=== PATIENT | male | born 1985 | race Caucasian/White ===

== ENCOUNTER 2017-10-24 16:26 | Observation (INO) ==
[2017-10-24] MEDS ORDERED: Morphine Inj 4 MG/ML Vial IV.PUSH ONE (22:56)
[2017-10-24] MEDS ORDERED: Vancomycin Inj 1 GM/200 ML PIGGYBACK IV.SIG ONE (22:56)
[2017-10-24] MEDS ORDERED: Sod Chloride 0.9% Inj 1,000 ML IV.SIG ONE (22:56)
[2017-10-24] MEDS ORDERED: Piperacil/Tazo 3.375 GM Premix 50 ML IV.SIG ONE (22:56)
--- NOTE | 2017-10-24 23:01 | ED ---
HPI General Chief complaint: Skin/Abscess/Foreign Body Stated complaint: Skin Complaint Time Seen by Provider: 10/24/17 22:54 History of Present Illness HPI narrative: This patient is a Vietnamese speaker but he declines official parts interpreter and would prefer that his friend translate for him. 32-year-old male presents for evaluation of right upper extremity pain, soft tissue swelling , redness. Symptom onset 3 days ago. 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 He believes it may be a spider or another type of insect bit him on the right arm when he was in an attic 3 days ago. Since then he has had increased pain and swelling. Pain is moderate, throbbing, aggravated by palpation with no alleviating factors. Yesterday he had nausea and subjective fevers but he did not check his temperature. He denies any history of IV drug use. He denies any chest pain, shortness of breath, abdominal pain. He has no other complaints at this time. Related Data Home Medications Medication Instructions Recorded Confirmed No Known Home Medications 10/24/17 10/24/17 Allergies Allergy/AdvReac Type Severity Reaction Status Date / Time No Known Allergies Allergy Unverified 10/24/17 22:54 Review of Systems ROS Unobtainable All other systems reviewed negative except as stated in HPI PMFSH Medical History Medical History Patient denies medical problems (Acute) Surgical History Surgical History No history of previous surgery (Acute) Social History Social History Substance History: No History of Abuse Second Hand Smoke Exposure: No Smoking Status: Current every day smoker Tobacco Type: Cigarettes How Often Do You Have a Drink Containing Alcohol: Monthly or less Recent Travel in [facility] within the Last 8 Weeks: No Recent Out of Country Travel within the Last 8 Weeks: No Immunization History Tetanus Immunization: Unsure Hx Influenza Vaccine This Season: No Exam Narrative Exam Narrative: GENERAL: Well-developed well-nourished male in no acute distress SKIN: Warm and dry. There is a large area of induration and erythema to the right forearm and distal right proximal arm. There is a area that is excoriated with some scab formation on the proximal right forearm. There is no fluctuance. No obvious effusion of the right elbow or wrist. No axillary lymphadenopathy is palpable. HEAD: Atraumatic. Normocephalic. EYES: Pupils equal and round. No scleral icterus. No injection or drainage. ENT: No nasal bleeding or discharge. Mucous membranes pink and moist. NECK: Trachea midline. No JVD. CARDIOVASCULAR: Regular rate and rhythm. No murmur appreciated. RESPIRATORY: No accessory muscle use. Clear to auscultation. Breath sounds equal bilaterally. GASTROINTESTINAL: Abdomen soft, non-tender, nondistended. Hepatic and splenic margins not palpable. MUSCULOSKELETAL: No obvious deformities. No clubbing. No cyanosis. No edema. NEUROLOGICAL: Awake and alert. No obvious cranial nerve deficits. Motor grossly within normal limits. Normal speech. Course Initial Documented Vital Signs Temperature 98.1 F 10/24/17 16:30 Pulse Rate 88 10/24/17 16:30 Respiratory Rate 17 10/24/17 16:30 Blood Pressure 124/64 10/24/17 16:30 Pulse Oximetry 100 10/24/17 16:30 Last Documented Vital Signs Temperature 98.3 F 10/24/17 23:01 Pulse Rate 96 H 10/24/17 23:01 Respiratory Rate 18 10/24/17 23:01 Blood Pressure 124/62 10/24/17 23:01 Pulse Oximetry 98 10/24/17 23:[address] [facility] Narrative Medical decision making narrative: This is a 32-year-old male who presents with pain, redness and soft tissue swelling to the right upper extremity which started 3 days ago. On examination he has very large area of cellulitis to the right forearm which is concerning given his symptoms started 2-3 days ago. Lab work, blood cultures, wound culture, soft tissue ultrasound right upper extremity has been ordered. The patient be given broad-spectrum antibiotics and ultimately he will require admission for IV antibiotic therapy. Lab work has been reviewed. WBC count is 18.4. Ultrasound soft tissue arm reveals diffuse cellulitis with an early developing abscess. Differential Diagnosis Differential Diagnosis: Cellulitis, abscess, sepsis, necrotizing fasciitis, osteomyelitis, septic arthritis Lab Data Result diagrams: 10/24/17 23:12 10/24/17 23:12 Lab Results 10/24/17 10/24/17 10/24/17 Range/Units 23:12 23:12 23:12 WBC 18.4 H (4.0-11.0) th/mm3 RBC 5.12 (4.50-5.90) mil/mm3 Hgb 15.1 (13.0-17.0) gm/dL Hct 45.2 (39.0-51.0) % MCV 88.3 (80.0-100.0) fL MCH 29.5 (27.0-34.0) pg MCHC 33.4 (32.0-36.0) % RDW 13.1 (11.6-17.2) % Plt Count 254 (150-450) th/mm3 MPV 8.8 (7.0-11.0) fL Neut % (Auto) 87.4 H (16.0-70.0) % Lymph % (Auto) 6.3 L (9.0-44.0) % [place] % (Auto) 5.0 (0.0-8.0) % Eos % (Auto) 0.9 (0.0-4.0) % Baso % (Auto) 0.4 (0.0-2.0) % Neut # (Auto) 16.1 H (1.8-7.7) th/mm3 Lymph # (Auto) 1.2 (1.0-4.8) th/mm3 [place] # (Auto) 0.9 (0.0-0.9) th/mm3 Eos # (Auto) 0.2 (0.0-0.4) th/mm3 Baso # (Auto) 0.1 (0.0-0.2) th/mm3 WBC Differential . Differential Comment Auto diff final PT 10.7 (9.8-11.6) sec INR 1.1 Ratio APTT 27.9 (24.3-30.1) sec Sodium 141 (136-145) meq/L Potassium 4.1 (3.5-5.1) meq/L Chloride 103 (98-107) meq/L Carbon Dioxide 32.0 (21.0-32.0) meq/L Anion Gap 6 (5-15) meq/L BUN 19 H (7-18) mg/dL Creatinine 1.17 (0.60-1.30) mg/dL Estimated GFR 71 L (>89) mL/min Random Glucose 112 H (74-106) mg/dL Lactic Acid (0.4-2.0) mmol/L Calcium 8.9 (8.5-10.1) mg/dL 10/24/17 Range/Units 23:55 WBC (4.0-11.0) th/mm3 RBC (4.50-5.90) mil/mm3 Hgb (13.0-17.0) gm/dL Hct (39.0-51.0) % MCV (80.0-100.0) fL MCH (27.0-34.0) pg MCHC (32.0-36.0) % RDW (11.6-17.2) % Plt Count (150-450) th/mm3 MPV (7.0-11.0) fL Neut % (Auto) (16.0-70.0) % Lymph % (Auto) (9.0-44.0) % [place] % (Auto) (0.0-8.0) % Eos % (Auto) (0.0-4.0) % Baso % (Auto) (0.0-2.0) % Neut # (Auto) (1.8-7.7) th/mm3 Lymph # (Auto) (1.0-4.8) th/mm3 [place] # (Auto) (0.0-0.9) th/mm3 Eos # (Auto) (0.0-0.4) th/mm3 Baso # (Auto) (0.0-0.2) th/mm3 WBC Differential Differential Comment PT (9.8-11.6) sec INR Ratio APTT (24.3-30.1) sec Sodium (136-145) meq/L Potassium (3.5-5.1) meq/L Chloride (98-107) meq/L Carbon Dioxide (21.0-32.0) meq/L Anion Gap (5-15) meq/L BUN (7-18) mg/dL Creatinine (0.60-1.30) mg/dL Estimated GFR (>89) mL/min Random Glucose (74-106) mg/dL Lactic Acid 1.1 (0.4-2.0) mmol/L Calcium (8.5-10.1) mg/dL Imaging Data Radiologist's impression: ITS Impressions Upper Extremity Ultrasound 10/25/17 00:00 CONCLUSION: 1. Diffuse cellulitis with a complex subcutaneous collection measuring 2.6 x 2.0 x 0.8 cm consistent with developing abscess. Discharge Plan Discharge Disposition Patient Disposition: 30 Still Patient Discharge Condition Condition: Stable Discharge Details Discharge Problem: Cellulitis of arm, right, Leukocytosis, Abscess of arm, right, Sepsis Physicians Team ED Provider: Pernell Guzman ED Midlevel Provider: Tho Mayorga Primary Care Provider: Primary Care Mary Plummer Rxs /Orders / Referrals /Forms Prescriptions: No Action No Known Home Medications RF: 0 Discharge Interventions Interventions: Vital Signs Last Done: 10/24/17 23:01 Status ED Status: With Doctor
[2017-10-24 23:28] LABS: Baso # (Auto) 0.1 th/mm3 (0.0-0.2); Baso % (Auto) 0.4 % (0.0-2.0); Eos # (Auto) 0.2 th/mm3 (0.0-0.4); Eos % (Auto) 0.9 % (0.0-4.0); Hematocrit 45.2 % (39.0-51.0); Hemoglobin 15.1 gm/dL (13.0-17.0); Lymph # (Auto) 1.2 th/mm3 (1.0-4.8); Lymph % (Auto) 6.3 % (9.0-44.0); Mean Corpuscular HGB Conc 33.4 % (32.0-36.0); Mean Corpuscular Hemoglobin 29.5 pg (27.0-34.0); Mean Corpuscular Volume 88.3 fL (80.0-100.0); Mean Platelet Volume 8.8 fL (7.0-11.0); Mono # (Auto) 0.9 th/mm3 (0.0-0.9); Neut # (Auto) 16.1 th/mm3 (1.8-7.7); Neut % (Auto) 87.4 % (16.0-70.0); Platelet Count 254 th/mm3 (150-450); Red Blood Count 5.12 mil/mm3 (4.50-5.90); Red Cell Distribution Width 13.1 % (11.6-17.2); White Blood Count 18.4 th/mm3 (4.0-11.0)
[2017-10-24 23:40] LABS: Activated Partial Thrombo Time 27.9 sec (24.3-30.1); INR 1.1 Ratio; Prothrombin Time 10.7 sec (9.8-11.6)
[2017-10-24 23:55] LABS: Calcium 8.9 mg/dL (8.5-10.1); Potassium 4.1 meq/L (3.5-5.1)
--- NOTE | 2017-10-25 00:30 | US ---
EXAM DATE: 10/25/2017 12:22 AM EDT AGE/SEX: 32 years / Male INDICATIONS: Abscess. CLINICAL DATA: This is the patient's initial encounter. Patient reports that signs and symptoms have been present for 2 days and indicates a pain score of 8/10. MEDICAL/SURGICAL HISTORY: . Cellulitis. None. COMPARISON: No prior exams available for comparison. FINDINGS: Diffuse soft tissue edema with a complex heterogeneously hypoechoic region measuring 2.6 x 2.0 x 0.8 cm. CONCLUSION: 1. Diffuse cellulitis with a complex subcutaneous collection measuring 2.6 x 2.0 x 0.8 cm consistent with developing abscess. Electronically signed by: Daryl Ness MD 10/25/2017 12:29 AM EDT
[2017-10-25] MEDS ORDERED: Morphine Inj 4 MG/ML Vial IV.PUSH PRN (01:52)
[2017-10-25] MEDS ORDERED: Bisacodyl 10 MG Supp RECTAL PRN (01:53)
[2017-10-25] MEDS ORDERED: Temazepam 15 MG Capsule PO PRN (01:53)
[2017-10-25] MEDS ORDERED: Acetaminophen 325 MG Tablet PO PRN (01:53)
[2017-10-25] MEDS ORDERED: Vancomycin Consult Pharmacy 1 EACH OTHER SCH (02:00)
[2017-10-25] MEDS: Sod Chloride 0.9% Inj 1,000 ML IV.CONT SCH ×2 (02:49→20:09)
--- NOTE | 2017-10-25 04:04 | P.HP ---
History of Present Illness Service: [facility] Primary Care Physician: No Primary Care Physician Chief Complaint: RUE cellulitits History of Present Illness: 32-year-old male with no past medical history presents the emergency department for evaluation of a red, painful, swollen right arm that is draining purulent material. 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 He states that the area became erythematous and painful and his symptoms have continued to worsen. Yesterday the area near his elbow opened up and started draining pus. The patient endorses a fever yesterday. He denies any chest pain or shortness of breath. No abdominal pain. No nausea/vomiting/diarrhea. No fatigue/weakness. Inpatient Certification: I certify that the inpatient services were ordered in accordance with Medicare regulations governing the order. This includes certification that hospital inpatient services are reasonable and necessary and in the case of services not specified as inpatient-only under 42 CFR 419.22(n), that they are appropriately provided as inpatient services in accordance to with the 2-midnight benchmark under 43 CFR 412.3(e) Review of Systems All other systems reviewed negative except as stated in [facility]PI [facility] - History History Provided By: Patient - Medical History Medical History: Medical History (Last Updated 10/24/17 @ 22:51 by Hector Sutton) Patient denies medical problems - Surgical History Surgical History: Surgical History (Last Updated 10/24/17 @ 22:51 by Hector Sutton) No history of previous surgery - Family History Family History: Family History (Last Updated 10/25/17 @ 04:00 by Barbara Rodgers MD) Other No family history of cardiac disease - Tobacco History Second Hand Smoke Exposure: No Tobacco Use In Past 30 Days: Yes Smoking Status: Current every day smoker Tobacco Type: Cigarettes - Alcohol History How Often Do You Have a Drink Containing Alcohol: Monthly or less - Substance Use History Substance History: No History of Abuse - Travel History Recent Travel in the [place] Within the Last 8 Weeks: No Recent Travel Out of the Country Within the Last 8 Weeks: No - Immunization History Tetanus Immunization: Unsure Hx Influenza Vaccine This Season: No Medications and Allergies Active Medications: Active Medications Acetaminophen (Tylenol) 650 mg PO Q4H PRN PRN Reason: Temp > 100.4 Al Hydroxide/Mg Hydroxide (Milk Of Magnesia Liq) 30 ml PO Q12H PRN PRN Reason: Mild Constipation Bisacodyl (Dulcolax Supp) 10 mg RECTAL DAILY PRN PRN Reason: SEVERE CONSITIPATION Sodium Chloride (Ns Inj) 1,000 mls @ 100 mls/hr IV.CONT .Q10H FAUSTO Last Admin: 10/25/17 02:49 Dose: 100 mls/hr Pharmacy Profile Note (Vancomycin Consult Pharmacy) 0 mls @ 0 mls/hr OTHER UNSCH FAUSTO Vancomycin HCl 1,000 mg/ (Sodium Chloride) 250 mls @ 250 mls/hr IV.SIG Q12H FAUSTO Piperacillin/Tazobactam/Dextrose (Zosyn 3.375 Gm Premix) 50 mls @ 100 mls/hr IV.SIG Q6H FAUSTO Lactulose (Lactulose Liq) 30 ml PO DAILY PRN PRN Reason: SEVERE CONSITIPATION Morphine Sulfate (Morphine Inj) 4 mg IV.PUSH Q4H PRN PRN Reason: pain 6-10 Last Admin: 10/25/17 02:58 Dose: 4 mg Ondansetron HCl (Zofran Inj) 4 mg IV.PUSH Q6H PRN PRN Reason: NAUSEA OR VOMITING Senna/Docusate Sodium (Maria D-Colace) 1 tab PO BID [facility] Sennosides (Senokot) 17.2 mg PO Q12H PRN PRN Reason: Moderate Constipation Sodium Chloride (Ns Flush) 2 ml IV.FLUSH PRN PRN PRN Reason: FLUSH AFTER USING IV ACCESS Temazepam (Restoril) 15 mg PO HS PRN PRN Reason: INSOMNIA Allergies Allergy/AdvReac Type Severity Reaction Status Date / Time No Known Allergies Allergy Unverified 10/24/17 22:54 Home Medications Medication Instructions Recorded Confirmed Type No Known Home Medications 10/24/17 10/24/17 History Exam Vital signs: Vital Signs 10/24/17 16:30 10/24/17 23:01 10/25/17 03:00 Temperature 98.1 F 98.3 F Pulse Rate 88 96 H 74 Respiratory Rate 17 18 18 Blood Pressure 124/64 124/62 113/68 Pulse Oximetry 100 98 98 Intake & Output 10/24/17 10/24/17 10/25/17 06:59 18:59 06:59 Intake Total 1050 / 1050 Balance 1050 / 1050 Weight 68.039 kg Intake: IV 1050 / 1050 Zosyn 3.375 GM Premix 50 ML @ 50 / 50 100 mls/hr IV.SIG ONCE ONE Rx#: [id number] NS Inj 1,000 ML @ Wide Open IV. 1000 / 1000 SIG BOLUS ONE Rx#:[id number] Narrative: Gen.: No acute distress Head: Normocephalic. Atraumatic. EENT: Pupils equal round and reactive to light. Nose without drainage. Airway intact. Throat without injection. Cardiovascular: Regular rate and rhythm. No murmurs, rubs or gallops. Respiratory: Lungs clear to auscultation bilaterally. No wheezes or rhonchi. Abdomen: Soft, nontender, nondistended. No peritoneal signs. Musculoskeletal: No gross deformities. No edema. Skin: Right forearm with erythema and edema. 3 cm open area draining purulent material. Neuro: Sensory and motor grossly intact. Cranial nerves II through XII grossly intact. Psych: Appropriate mood and affect Results - Labs CBC & Chem 7: 10/24/17 23:12 10/24/17 23:12 Labs: Laboratory Results - last 24 hr 10/24/17 10/24/17 10/24/17 23:12 23:12 23:12 WBC 18.4 H RBC 5.12 Hgb 15.1 Hct 45.2 MCV 88.3 MCH 29.5 MCHC 33.4 RDW 13.1 Plt Count 254 MPV 8.8 Neut % (Auto) 87.4 H Lymph % (Auto) 6.3 L [place] % (Auto) 5.0 Eos % (Auto) 0.9 Baso % (Auto) 0.4 Neut # (Auto) 16.1 H Lymph # (Auto) 1.2 [place] # (Auto) 0.9 Eos # (Auto) 0.2 Baso # (Auto) 0.1 WBC Differential . Differential Comment Auto diff final PT 10.7 INR 1.1 APTT 27.9 Sodium 141 Potassium 4.1 Chloride 103 Carbon Dioxide 32.0 Anion Gap 6 BUN 19 H Creatinine 1.17 Estimated GFR 71 L Random Glucose 112 H Lactic Acid Calcium 8.9 10/24/17 23:55 WBC RBC Hgb Hct MCV MCH MCHC RDW Plt Count MPV Neut % (Auto) Lymph % (Auto) [place] % (Auto) Eos % (Auto) Baso % (Auto) Neut # (Auto) Lymph # (Auto) [place] # (Auto) Eos # (Auto) Baso # (Auto) WBC Differential Differential Comment PT INR APTT Sodium Potassium Chloride Carbon Dioxide Anion Gap BUN Creatinine Estimated GFR Random Glucose Lactic Acid 1.1 Calcium - Imaging Impressions Upper Extremity Ultrasound 10/25/17 00:00 CONCLUSION: 1. Diffuse cellulitis with a complex subcutaneous collection measuring 2.6 x 2.0 x 0.8 cm consistent with developing abscess. Caprini VTE Risk Assessment Caprini VTE Risk Assessment: No/Low Risk (score <= 1) Caprini Risk Assessment Model: Point Value = 1 Point Value = 2 Point Value = 3 Point Value = 5 Age 41-60 Minor surgery BMI > 25 kg/m2 Swollen legs Varicose veins or History of unexplained or recurrent spontaneous Oral contraceptives or hormone replacement Sepsis (< 1 month) Serious lung disease, including pneumonia (< 1 month) Abnormal pulmonary function Acute myocardial infarction Congestive heart failure (< 1 month) History of inflammatory bowel disease Medical patient at bed rest Age 61-74 Arthroscopic surgery Major open surgery (> 45 min) Laparoscopic surgery (> 45 min) Malignancy Confined to bed (> 72 hours) Immobilizing plaster cast Central venous access Age >= 75 History of VTE Family history of VTE Factor V Leiden Prothrombin [id number] Lupus anticoagulant Anticardiolipin antibodies Elevated serum homocysteine Heparin-induced thrombocytopenia Other congenital or acquired thrombophilia Stroke (< 1 month) Elective arthroplasty Hip, pelvis, or leg fracture Acute spinal cord injury (< 1 month) Prophylaxis Regimen: Total Risk Factor Score Risk Level Prophylaxis Regimen 0-1 Low Early ambulation 2 Moderate Order ONE of the following: *Sequential Compression Device (SCD) *Heparin 5000 units SQ BID 3-4 Higher Order ONE of the following medications: *Heparin 5000 units SQ TID *Enoxaparin/Lovenox 40 mg SQ daily (WT < 150 kg, CrCl > 30 mL/min) *Enoxaparin/Lovenox 30 mg SQ daily (WT < 150 kg, CrCl > 10-29 mL/min) *Enoxaparin/Lovenox 30 mg SQ BID (WT < 150 kg, CrCl > 30 mL/min) AND/OR *Sequential Compression Device (SCD) 5 or more Highest Order ONE of the following medications: *Heparin 5000 units SQ TID (Preferred with Epidurals) *Enoxaparin/Lovenox 40 mg SQ daily (WT < 150 kg, CrCl > 30 mL/min) *Enoxaparin/Lovenox 30 mg SQ daily (WT < 150 kg, CrCl > 10-29 mL/min) *Enoxaparin/Lovenox 30 mg SQ BID (WT < 150 kg, CrCl > 30 mL/min) AND *Sequential Compression Device (SCD) Assessment and Plan - Plan Assessment/plan: 1. Right upper extremity cellulitis/abscess Ultrasound of the right upper extremity shows diffuse cellulitis with a complex subcutaneous collection consistent with a developing abscess Vancomycin/Zosyn Blood/wound cultures pending General surgery consulted to evaluate for possible I&D Morphine for pain FEN N.p.o. Electrolytes: Monitor and replete as needed NS at 100 cc/hour
[2017-10-25] MEDS: Piperacil/Tazo 3.375 GM Premix 50 ML IV.SIG SCH ×3 (06:18→18:55)
[2017-10-25] MEDS: Senna/Docusate Sodium 8.6/50 MG Tablet PO SCH ×2 (10:16→21:52)
[2017-10-25] MEDS: Vancomycin Inj 1,000 MG in Sodium Chlor 0.9% Inj 250 ML IV.SIG SCH (13:47)
[2017-10-25] MEDS ORDERED: Lidocaine PF 1% Inj 5 ML Syringe INFILTRATN ONE (14:58)
[2017-10-25] MEDS ORDERED: Chlorhexidine Gluconate 2% 1 Pack (2 Cloths) TOPICAL SCH (22:15)
[2017-10-25] MEDS ORDERED: Metoprolol Tartrate 25 MG Tablet PO SCH (22:15)
[2017-10-25] MEDS ORDERED: Sodium Chlor 0.9% Inj 500 ML IV.SIG SCH (23:00)
[2017-10-25] MEDS ORDERED: ceFAZolin 2 GM Premix Inj 2 GM/50 ML PIGGYBACK IV.SIG ONE ×2 (23:12→23:15)
--- NOTE | 2017-10-25 23:18 | MB ---
cc: Eleazar Hernandez MD, Srikanth MD DATE: 10/25/2017 REASON FOR CONSULTATION: Right forearm abscess. HISTORY OF PRESENT ILLNESS: The patient is a 32-year-old right-hand dominant male who presented with complaints of pain, swelling and redness involving the right elbow/forearm region. The patient states he was bitten by a questionable spider in the attic about 3 to 4 days ago and he noticed drainage from the region. He complains of pain, swelling, redness over the right forearm and elbow region. He also complains of drainage from the region. He does complain of fever. Denies any similar history in the past. He denies any complaints of numbness involving the fingertips. PAST MEDICAL AND SURGICAL HISTORY: Noted and nonsignificant. PHYSICAL EXAMINATION: Examination of right upper extremity reveals a draining open wound over the posterior aspect of the elbow and forearm region just distal to the olecranon process. There is evidence of surrounding swelling and erythema. Tenderness noted over the region. Increased warmth noted over the region. Mild drainage of purulent material noted over the region. No tenderness noted over the ulnar nerve. He is able to make a full fist. He has flexion in all of the fingers. He has intact intrinsic muscle power. He has intact distal capillary refill. Clinically, there is no evidence of olecranon bursitis. Elbow flexion and extension is almost full. LABORATORY DATA: Reviewed. He has a white count of 18.4 and shift of 87 pounds and 87.4. IMAGING STUDIES: He had ultrasound of the right upper extremity, which showed evidence of complex fluid collection measuring about 2.6 x 2 x 0.8 cm consistent with developing abscess. ASSESSMENT: A 32-year-old male with an abscess, right elbow/posterior forearm. PLAN: Take the patient emergently for incision and drainage of right forearm abscess. The patient has been explained the risks and benefits of the procedure. We will continue with IV antibiotics. Eleazar Hernandez MD SE/ , 11:00 PM , 11:17 PM
[2017-10-25] MEDS ORDERED: Neomycin/Polymyxin G.U. Irrigant 1 ML Ampul ONE (23:22)
[2017-10-25] MEDS ORDERED: Bupivacaine PF 0.5% Inj 30 ML Vial ONE (23:24)
[2017-10-25] MEDS ORDERED: Lidocaine 2% Inj 50 ML Vial ONE (23:24)
--- NOTE | 2017-10-26 00:39 | P.OP ---
- Preoperative Diagnosis (1) Abscess of right forearm - Postoperative Diagnosis (1) Abscess of right forearm Date of procedure: 10/26/17 Procedure: incision and drainage of right elbow abscess Anesthesia: GETA Surgeon: Eleazar Hernandez MD Estimated blood loss (mL): 10 Tourniquet time (min): 17 Pathology: other (swab for culture and sensitivity) Operation and Findings: abscess cavity over the posterior proximal forearm just distal to the olecranon bursa
[2017-10-26] MEDS ORDERED: fentaNYL Citrate Inj 100 MCG/2 ML Ampul ONE (00:47)
--- NOTE | 2017-10-26 01:02 | MP ---
cc: Eleazar Hernandez MD DATE OF OPERATION: 10/25/2017 DATE OF SURGERY: 10/25/2017 PREOPERATIVE DIAGNOSIS: Abscess, right forearm. POSTOPERATIVE DIAGNOSIS: Abscess, right forearm. PROCEDURE PERFORMED: Incision and drainage, right elbow/forearm abscess. SURGEON: Dr. Hernandez. ANESTHESIA: General. ESTIMATED BLOOD LOSS: 10 mL. TOURNIQUET TIME: 17 minutes at 250 mmHg. SPECIMENS: Sent for culture and sensitivity. DISPOSITION: To PACU, stable. INDICATIONS: The patient is a 32-year-old male who presented with complaints of pain, swelling and redness over the right elbow and forearm region. He also complained of drainage from the region. On examination, he had an open, draining wound over the posterior aspect of the elbow just distal to the olecranon bursa region. He did not have any tenderness over the olecranon bursa. He had diffuse tenderness and swelling with fluctuation over the proximal aspect of the posterior forearm. Ultrasound showed complex collection consistent with abscess. The patient was consented for incision and drainage of abscess. The patient was explained the risks and benefits of the procedure. PROCEDURE IN DETAIL: The patient was brought to the operating room. Under general anesthesia, the right upper extremity was thoroughly prepped and draped. After limb elevation, tourniquet was inflated to 250 mmHg. Incision was then made over the open wound. On further exploration, there was evidence of extensive necrotic tissue within the subcutaneous region which was debrided. There was also evidence of pockets of pus within the subcutaneous region which were drained, and material was sent for culture and sensitivity. Using blunt finger dissection, pockets were broken. No evidence of any extension into the olecranon bursa was noted clinically intraoperatively. Using a rongeur, excisional debridement of devitalized tissue was carried out. Thorough wash was given using normal saline mixed with hydrogen peroxide. This was then followed by normal saline mixed with irrigant. About a liter of solution was used. Tourniquet was deflated at 17 minutes. He had good distal circulation after release of tourniquet. Packing of the wound was carried out. The wound was left open. A bulky dressing was applied which was held in place by Sof-Rol and bias wrap. The patient was recovered and sent to recovery room in stable condition. He had good distal circulation at the end of the procedure. We will change the packing tomorrow. MD RACHEL Zarate , 12:43 AM , 01:01 AM [email or web address]
[2017-10-26] MEDS: Sod Chloride 0.9% Inj 1,000 ML IV.CONT SCH ×3 (01:06→20:25)
[2017-10-26] MEDS: Piperacil/Tazo 3.375 GM Premix 50 ML IV.SIG SCH ×4 (01:07→18:18)
[2017-10-26] MEDS: Vancomycin Inj 1,000 MG in Sodium Chlor 0.9% Inj 250 ML IV.SIG SCH ×3 (01:57→20:25)
[2017-10-26 08:29] LABS: Baso % (Auto) 0.1 % (0.0-2.0); Hematocrit 39.2 % (39.0-51.0); Hemoglobin 13.2 gm/dL (13.0-17.0); Lymph # (Auto) 0.6 th/mm3 (1.0-4.8); Lymph % (Auto) 3.9 % (9.0-44.0); Mean Corpuscular HGB Conc 33.8 % (32.0-36.0); Mean Corpuscular Hemoglobin 29.5 pg (27.0-34.0); Mean Corpuscular Volume 87.5 fL (80.0-100.0); Mono # (Auto) 0.2 th/mm3 (0.0-0.9); Mono % (Auto) 1.3 % (0.0-8.0); Neut # (Auto) 13.5 th/mm3 (1.8-7.7); Neut % (Auto) 94.7 % (16.0-70.0); Platelet Count 263 th/mm3 (150-450); Red Blood Count 4.48 mil/mm3 (4.50-5.90); Red Cell Distribution Width 12.7 % (11.6-17.2); White Blood Count 14.3 th/mm3 (4.0-11.0)
[2017-10-26 08:55] LABS: Anion Gap 6 meq/L (5-15); Blood Urea Nitrogen 13 mg/dL (7-18); Chloride 106 meq/L (98-107); Glomerular Filtration Rate Greater Than 89 mL/min (>89); Glucose,Random 139 mg/dL (74-106); Potassium 4.1 meq/L (3.5-5.1); Sodium 139 meq/L (136-145)
[2017-10-26] MEDS: Senna/Docusate Sodium 8.6/50 MG Tablet PO SCH ×2 (09:07→20:25)
[2017-10-26] MEDS ORDERED: Pharmacy Ordered Lab Info OTHER ONE (11:45)
[2017-10-26] MEDS ORDERED: Vancomycin Inj 1,000 MG in Sodium Chlor 0.9% Inj 250 ML IV.SIG SCH (16:00)
--- NOTE | 2017-10-26 18:18 | P.PN ---
Subjective Interval history: denies any pain feels better no fever denies any numbness Physical Exam Vital signs: Vital Signs 10/25/17 20:00 10/25/17 22:15 10/26/17 00:41 Temperature 99.8 F H 99.6 F 99.1 F Pulse Rate 82 93 H 83 Respiratory Rate 18 20 14 Blood Pressure 108/62 121/68 103/60 Pulse Oximetry 98 98 94 L 10/26/17 00:45 10/26/17 01:00 10/26/17 01:14 Temperature Pulse Rate 82 96 H Respiratory Rate 14 28 H Blood Pressure 100/58 L 118/59 L Pulse Oximetry 93 L 93 L 96 10/26/17 01:15 10/26/17 01:30 10/26/17 03:39 Temperature 99.5 F 98.0 F Pulse Rate 96 H 85 73 Respiratory Rate 27 H 22 19 Blood Pressure 124/67 116/57 L 99/56 L Pulse Oximetry 100 100 94 L 10/26/17 08:00 10/26/17 12:00 10/26/17 16:00 Temperature 97.6 F 98.2 F 98.0 F Pulse Rate 64 87 79 Respiratory Rate 18 18 18 Blood Pressure 94/52 L 110/56 L 101/61 Pulse Oximetry 97 96 96 Intake & Output 10/25/17 10/26/17 10/26/17 18:59 06:59 18:59 Intake Total 1050 / 1050 2650 / 2650 828 / 828 Output Total Balance 1050 / 1050 2640 / 2640 828 / 828 Intake: IV 1050 / 1050 1850 / 1850 828 / 828 NS Inj 1,000 ML @ 100 mls/hr IV 1000 / 1000 1000 / 1000 528 / 528 .CONT .Q10H [facility] Rx#:[id number] Zosyn 3.375 GM Premix 50 ML @ 50 / 50 100 / 100 50 / 50 100 mls/hr IV.SIG Q6H [facility] Rx#: [id number] Vancomycin Inj 1,000 MG In NS 500 / 500 250 / 250 Inj 250 ML @ 250 mls/hr IV.SIG Q12H [facility] Rx#:[id number] Ancef 2 GM Premix Inj 2 gm In 50 / 50 50 ml @ 100 mls/hr IV.SIG ONCE ONE Rx#:[id number] Anesthesia Amount 800 / 800 Output: Estimated Blood Loss Narrative: examination of right upper extremity: intact dressing and packing in place decreased swelling of the forearm and arm compartments soft and non tender minimal drainage able to make a fist intact distal sensation cultures: heavy growth of staph Results - Labs CBC & Chem 7: 10/26/17 07:19 10/26/17 07:19 Laboratory Results - last 24 hr 10/26/17 10/26/17 10/26/17 07:19 07:19 11:58 WBC 14.3 H RBC 4.48 L Hgb 13.2 Hct 39.2 MCV 87.5 MCH 29.5 MCHC 33.8 RDW 12.7 Plt Count 263 MPV 9.0 Neut % (Auto) 94.7 H Lymph % (Auto) 3.9 L [place] % (Auto) 1.3 Eos % (Auto) 0.0 Baso % (Auto) 0.1 Neut # (Auto) 13.5 H Lymph # (Auto) 0.6 L [place] # (Auto) 0.2 Eos # (Auto) 0.0 Baso # (Auto) 0.0 WBC Differential . Differential Comment Auto diff final Sodium 139 Potassium 4.1 Chloride 106 Carbon Dioxide 27.0 Anion Gap 6 BUN 13 Creatinine 0.93 Estimated GFR Greater than 89 Random Glucose 139 H Calcium 9.0 Vancomycin Trough 6.3 Microbiology 10/24/17 23:13 Blood - Peripheral Aerobic Blood Culture - Preliminary No growth in 2 days 10/24/17 23:13 Blood - Peripheral Anaerobic Blood Culture - Preliminary No growth in 2 days 10/24/17 23:23 Blood - Peripheral Aerobic Blood Culture - Preliminary No growth in 2 days 10/24/17 23:23 Blood - Peripheral Anaerobic Blood Culture - Preliminary No growth in 2 days 10/24/17 22:03 Abscess - Arm Gram Stain - Final 10/24/17 22:03 Abscess - Arm Wound Culture - Final Staphylococcus aureus 10/26/17 00:07 Wound - Elbow Gram Stain - Final Assessment and Plan - Assessment (1) Abscess of right forearm Code(s): L02.413 - Cutaneous abscess of right upper limb Status: Acute - Plan packing pulled out about 5cms. dry dressing, soft roll and marcus wrap applied keep the part elevated finger and elbow range of motion exercises continue with IV antibiotics hand surgery will follow
[2017-10-27] MEDS: Piperacil/Tazo 3.375 GM Premix 50 ML IV.SIG SCH ×2 (00:19→06:26)
[2017-10-27] MEDS: Vancomycin Inj 1,000 MG in Sodium Chlor 0.9% Inj 250 ML IV.SIG SCH ×3 (03:53→22:00)
[2017-10-27] MEDS: Senna/Docusate Sodium 8.6/50 MG Tablet PO SCH ×2 (08:45→22:00)
--- NOTE | 2017-10-27 10:34 | P.PNIM ---
Subjective Interval history: Patient reports the arm is feeling much better today. Less painful, less swelling. Range of motion is normal. Physical Exam Vital signs: Vital Signs 10/26/17 12:00 10/26/17 16:00 10/26/17 20:00 Temperature 98.2 F 98.0 F 98.4 F Pulse Rate 87 79 78 Respiratory Rate 18 18 17 Blood Pressure 110/56 L 101/61 123/66 Pulse Oximetry 96 96 98 10/26/17 23:30 10/27/17 04:54 10/27/17 07:23 Temperature 97.6 F 96.3 F L 97.4 F L Pulse Rate 73 59 L 63 Respiratory Rate 18 18 Blood Pressure 109/61 107/60 103/60 Pulse Oximetry 97 97 96 Intake & Output 10/26/17 10/27/17 10/27/17 18:59 06:59 18:59 Intake Total 878 / 878 1550 / 1550 Output Total 600 / 600 Balance 878 / 878 950 / 950 Intake: IV 878 / 878 1550 / 1550 NS Inj 1,000 ML @ 100 mls/hr IV 528 / 528 950 / 950 .CONT .Q10H [facility] Rx#:[id number] Zosyn 3.375 GM Premix 50 ML @ 100 / 100 100 / 100 100 mls/hr IV.SIG Q6H [facility] Rx#: [id number] Vancomycin Inj 1,000 MG In NS 250 / 250 500 / 500 Inj 250 ML @ 250 mls/hr IV.SIG Q8H [facility] Rx#:[id number] Output: Urine 600 / 600 Other: Date of Last Bowel Movement 10/26/17 Narrative: GENERAL: This is a well-nourished, well-developed patient, in no apparent distress. CARDIOVASCULAR: Normal rate and regular rhythm without murmurs, gallops, or rubs. RESPIRATORY: Good respiratory efforts. Breath sounds equal and clear to auscultation bilaterally. GASTROINTESTINAL: Abdomen soft, non-tender, non-distended. Normal active bowel sounds MUSCULOSKELETAL: Right upper extremity dressing is intact. Neurovascularly intact distally at the fingers. NEURO: Alert & Oriented x4 to person, place, time, situation. Moves all ext x4 PSYCH: Appropriate mood and affect. Results - Labs CBC & Chem 7: 10/26/17 07:19 10/26/17 07:19 Laboratory Results - last 24 hr 10/26/17 11:58 Vancomycin Trough 6.3 Microbiology 10/24/17 23:13 Blood - Peripheral Aerobic Blood Culture - Preliminary No growth in 2 days 10/24/17 23:13 Blood - Peripheral Anaerobic Blood Culture - Preliminary No growth in 2 days 10/24/17 23:23 Blood - Peripheral Aerobic Blood Culture - Preliminary No growth in 2 days 10/24/17 23:23 Blood - Peripheral Anaerobic Blood Culture - Preliminary No growth in 2 days 10/24/17 22:03 Abscess - Arm Gram Stain - Final 10/24/17 22:03 Abscess - Arm Wound Culture - Final Staphylococcus aureus 10/26/17 00:07 Wound - Elbow Gram Stain - Final Assessment and Plan - Assessment (1) Cellulitis of arm, right Code(s): L03.113 - Cellulitis of right upper limb Status: Acute (2) Abscess of arm, right Code(s): L02.413 - Cutaneous abscess of right upper limb Status: Acute (3) Abscess of right forearm Code(s): L02.413 - Cutaneous abscess of right upper limb Status: Acute - Plan Assessment/plan: 1. Right upper extremity cellulitis/abscess Ultrasound of the right upper extremity shows diffuse cellulitis with a complex subcutaneous collection consistent with a developing abscess Patient is status post incision and drainage. Hand surgery following. Dressing changes per hand surgery. Wound cultures growing MSSA. Change antibiotics to IV Ancef. Anticipate discharge soon when cleared by Hand surgery.
[2017-10-27] MEDS: Sod Chloride 0.9% Inj 1,000 ML IV.CONT SCH ×2 (12:53→13:24)
--- NOTE | 2017-10-27 17:00 | P.PN ---
Subjective Interval history: no pain no fever complaint with limb elevation Physical Exam Vital signs: Vital Signs 10/26/17 20:00 10/26/17 23:30 10/27/17 04:54 Temperature 98.4 F 97.6 F 96.3 F L Pulse Rate 78 73 59 L Respiratory Rate 17 18 18 Blood Pressure 123/66 109/61 107/60 Pulse Oximetry 98 97 97 10/27/17 07:23 10/27/17 12:00 10/27/17 15:44 Temperature 97.4 F L 97.7 F 98.0 F Pulse Rate 63 52 L 63 Respiratory Rate 18 18 Blood Pressure 103/60 104/65 107/63 Pulse Oximetry 96 98 96 Intake & Output 10/26/17 10/27/17 10/27/17 18:59 06:59 18:59 Intake Total 878 / 878 2550 / 2550 100 / 100 Output Total 600 / 600 Balance 878 / 878 1950 / 1950 100 / 100 Intake: IV 878 / 878 2550 / 2550 100 / 100 NS Inj 1,000 ML @ 100 mls/hr IV 528 / 528 1950 / 1950 .CONT .Q10H [facility] Rx#:[id number] Zosyn 3.375 GM Premix 50 ML @ 100 / 100 100 / 100 100 mls/hr IV.SIG Q6H [facility] Rx#: [id number] Vancomycin Inj 1,000 MG In NS 250 / 250 500 / 500 Inj 250 ML @ 250 mls/hr IV.SIG Q8H [facility] Rx#:[id number] Ancef Inj 1,000 MG In NS Inj 100 / 100 100 ML @ 200 mls/hr IV.SIG Q8H [facility] Rx#:[id number] Output: Urine 600 / 600 Other: Date of Last Bowel Movement 10/26/17 Narrative: examination of the right upper extremity: intact dressing packing in place minimal drainage decreased swelling and redness able to make a full fist intact sensation distally cultures: MSSA Results - Labs CBC & Chem 7: 10/26/17 07:19 10/26/17 07:19 Microbiology 10/26/17 00:07 Wound - Elbow Gram Stain - Final 10/26/17 00:07 Wound - Elbow Wound Culture - Preliminary Staphylococcus aureus 10/24/17 23:13 Blood - Peripheral Aerobic Blood Culture - Preliminary No growth in 3 days 10/24/17 23:13 Blood - Peripheral Anaerobic Blood Culture - Preliminary No growth in 3 days 10/24/17 23:23 Blood - Peripheral Aerobic Blood Culture - Preliminary No growth in 3 days 10/24/17 23:23 Blood - Peripheral Anaerobic Blood Culture - Preliminary No growth in 3 days Assessment and Plan - Assessment (1) Abscess of right forearm Code(s): L02.413 - Cutaneous abscess of right upper limb Status: Acute - Plan packing pulled out. dry dressing applied keep the part elevated finger and elbow range of motion exercises continue with IV antibiotics plan for discharge on 10/28 after i change the dressing on po antibiotics.
[2017-10-28] MEDS: Sod Chloride 0.9% Inj 1,000 ML IV.CONT SCH ×2 (05:33→11:09)
[2017-10-28] MEDS: Vancomycin Inj 1,000 MG in Sodium Chlor 0.9% Inj 250 ML IV.SIG SCH (05:36)
[2017-10-28 07:39] LABS: Baso % (Auto) 0.5 % (0.0-2.0); Eos # (Auto) 0.1 th/mm3 (0.0-0.4); Eos % (Auto) 2.2 % (0.0-4.0); Hematocrit 37.7 % (39.0-51.0); Hemoglobin 12.7 gm/dL (13.0-17.0); Lymph # (Auto) 2.8 th/mm3 (1.0-4.8); Lymph % (Auto) 42.3 % (9.0-44.0); Mean Corpuscular HGB Conc 33.6 % (32.0-36.0); Mean Corpuscular Hemoglobin 29.7 pg (27.0-34.0); Mean Corpuscular Volume 88.4 fL (80.0-100.0); Mean Platelet Volume 8.7 fL (7.0-11.0); Mono # (Auto) 0.6 th/mm3 (0.0-0.9); Mono % (Auto) 8.6 % (0.0-8.0); Neut # (Auto) 3.1 th/mm3 (1.8-7.7); Neut % (Auto) 46.4 % (16.0-70.0); Platelet Count 294 th/mm3 (150-450); Red Blood Count 4.26 mil/mm3 (4.50-5.90); Red Cell Distribution Width 12.9 % (11.6-17.2); White Blood Count 6.7 th/mm3 (4.0-11.0)
[2017-10-28] MEDS: Senna/Docusate Sodium 8.6/50 MG Tablet PO SCH (11:09)
--- NOTE | 2017-10-28 11:31 | P.PNIM ---
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 Patient reports that pain is controlled. Denies any chest pain or shortness of breath. Denies any nausea or vomiting. Physical Exam Vital signs: Vital Signs 10/27/17 12:00 10/27/17 15:44 10/27/17 20:00 Temperature 97.7 F 98.0 F 98.2 F Pulse Rate 52 L 63 64 Respiratory Rate 18 18 17 Blood Pressure 104/65 107/63 109/60 Pulse Oximetry 98 96 97 10/28/17 00:00 10/28/17 00:47 10/28/17 03:33 Temperature 98.1 F 98 F Pulse Rate 57 L 51 L Respiratory Rate 20 16 16 Blood Pressure 123/74 109/69 Pulse Oximetry 97 99 Intake & Output 10/27/17 10/28/17 10/28/17 18:59 06:59 18:59 Intake Total 350 / 350 1450 / 1450 Balance 350 / 350 1450 / 1450 Intake: IV 350 / 350 1450 / 1450 NS Inj 1,000 ML @ 100 mls/hr IV 1000 / 1000 .CONT .Q10H [facility] Rx#:[id number] Vancomycin Inj 1,000 MG In NS 250 / 250 250 / 250 Inj 250 ML @ 250 mls/hr IV.SIG Q8H [facility] Rx#:[id number] Ancef Inj 1,000 MG In NS Inj 100 / 100 200 / 200 100 ML @ 200 mls/hr IV.SIG Q8H [facility] Rx#:[id number] Narrative: GENERAL: Sitting up in bed. Appears comfortable. Alert and oriented x3 SKIN: Warm and dry. HEAD: Normocephalic. EYES: No scleral icterus. No injection or drainage. NECK: Supple, trachea midline. No JVD. CARDIOVASCULAR: Regular rate and rhythm without murmurs, gallops, or rubs. RESPIRATORY: Breath sounds equal bilaterally. No accessory muscle use. GASTROINTESTINAL: Abdomen soft, non-tender, nondistended. MUSCULOSKELETAL: No cyanosis, or edema. Right forearm dressed with dressing clean dry and intact. BACK: Nontender without obvious deformity. No CVA tenderness. Results - Labs CBC & Chem 7: 10/28/17 06:05 10/26/17 07:19 Laboratory Results - last 24 hr 10/28/17 06:05 WBC 6.7 RBC 4.26 L Hgb 12.7 L Hct 37.7 L MCV 88.4 MCH 29.7 MCHC 33.6 RDW 12.9 Plt Count 294 MPV 8.7 Neut % (Auto) 46.4 Lymph % (Auto) 42.3 [place] % (Auto) 8.6 H Eos % (Auto) 2.2 Baso % (Auto) 0.5 Neut # (Auto) 3.1 Lymph # (Auto) 2.8 [place] # (Auto) 0.6 Eos # (Auto) 0.1 Baso # (Auto) 0.0 WBC Differential . Differential Comment Auto diff final Microbiology 10/24/17 23:13 Blood - Peripheral Aerobic Blood Culture - Preliminary No growth in 4 days 10/24/17 23:13 Blood - Peripheral Anaerobic Blood Culture - Preliminary No growth in 4 days 10/24/17 23:23 Blood - Peripheral Aerobic Blood Culture - Preliminary No growth in 4 days 10/24/17 23:23 Blood - Peripheral Anaerobic Blood Culture - Preliminary No growth in 4 days 10/26/17 00:07 Wound - Elbow Gram Stain - Final 10/26/17 00:07 Wound - Elbow Wound Culture - Final Staphylococcus aureus Assessment and Plan - Assessment (1) Cellulitis of arm, right Code(s): L03.113 - Cellulitis of right upper limb Status: Acute (2) Abscess of arm, right Code(s): L02.413 - Cutaneous abscess of right upper limb Status: Acute (3) Abscess of right forearm Code(s): L02.413 - Cutaneous abscess of right upper limb Status: Acute - Plan //Right upper extremity cellulitis/abscess Ultrasound of the right upper extremity shows diffuse cellulitis with a complex subcutaneous collection consistent with a developing abscess Patient is status post incision and drainage. Hand surgery following. Dressing changes per hand surgery. Wound cultures growing MSSA. Change antibiotics to IV Ancef. Anticipate discharge soon when cleared by Hand surgery. = Pending and surgery clearance for Discharge Planning: Pending hand surgery clearance
--- NOTE | 2017-10-28 11:48 | P.DS ---
Date of admission: 10/25/17 01:53 Primary care physician: No Primary Care Physician Anticipated date of discharge: 10/28/17 Brief History from admission: 32-year-old male with no past medical history presents the emergency department for evaluation of a red, painful, swollen right arm that is draining purulent material. 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 He states that the area became erythematous and painful and his symptoms have continued to worsen. Yesterday the area near his elbow opened up and started draining pus. The patient endorses a fever yesterday. He denies any chest pain or shortness of breath. No abdominal pain. No nausea/vomiting/diarrhea. No fatigue/weakness. DS: Diagnosis - Discharge Diagnosis (1) Cellulitis of arm, right Status: Acute (2) Abscess of arm, right Status: Acute (3) Abscess of right forearm Status: Acute DS: Medications - Discharge Medications Prescriptions: cephalexin [Keflex] 750 mg PO TID #30 cap DS: Summary Hospital Course: Patient was started on broad-spectrum antibiotics with improvement. Patient underwent incision and drainage by hand surgery. Patient was cleared for discharge by hand surgery. Continue on by mouth antibiotics. Follow with primary care. For problem-based summary from most recent progress note, please see below. //Right upper extremity cellulitis/abscess Ultrasound of the right upper extremity shows diffuse cellulitis with a complex subcutaneous collection consistent with a developing abscess Patient is status post incision and drainage. Hand surgery following. Dressing changes per hand surgery. Wound cultures growing MSSA. Change antibiotics to IV Ancef. Anticipate discharge soon when cleared by Hand surgery. = Pending hand surgery clearance - Time Spent with Patient Total time spent providing and/or coordinating discharge services: - Quality: VTE Deep Vein Thrombosis/Pulmonary Embolism Present on Admission: No Exam Vital signs: Vital Signs 10/27/17 12:00 10/27/17 15:44 10/27/17 20:00 Temperature 97.7 F 98.0 F 98.2 F Pulse Rate 52 L 63 64 Respiratory Rate 18 18 17 Blood Pressure 104/65 107/63 109/60 Pulse Oximetry 98 96 97 10/28/17 00:00 10/28/17 00:47 10/28/17 03:33 Temperature 98.1 F 98 F Pulse Rate 57 L 51 L Respiratory Rate 20 16 16 Blood Pressure 123/74 109/69 Pulse Oximetry 97 99 Intake & Output 10/27/17 10/28/17 10/28/17 18:59 06:59 18:59 Intake Total 350 / 350 1450 / 1450 Balance 350 / 350 1450 / 1450 Intake: IV 350 / 350 1450 / 1450 NS Inj 1,000 ML @ 100 mls/hr IV 1000 / 1000 .CONT .Q10H [facility] Rx#:[id number] Vancomycin Inj 1,000 MG In NS 250 / 250 250 / 250 Inj 250 ML @ 250 mls/hr IV.SIG Q8H [facility] Rx#:[id number] Ancef Inj 1,000 MG In NS Inj 100 / 100 200 / 200 100 ML @ 200 mls/hr IV.SIG Q8H [facility] Rx#:[id number] Results Procedures completed during hospitalization: Incision and drainage Labs on day of discharge: Labs from last 24 hours 10/28/17 06:05 WBC 6.7 RBC 4.26 L Hgb 12.7 L Hct 37.7 L MCV 88.4 MCH 29.7 MCHC 33.6 RDW 12.9 Plt Count 294 MPV 8.7 Neut % (Auto) 46.4 Lymph % (Auto) 42.3 [place] % (Auto) 8.6 H Eos % (Auto) 2.2 Baso % (Auto) 0.5 Neut # (Auto) 3.1 Lymph # (Auto) 2.8 [place] # (Auto) 0.6 Eos # (Auto) 0.1 Baso # (Auto) 0.0 WBC Differential . Differential Comment Auto diff final Preliminary micro results at discharge 10/24/17 23:13 Aerobic Blood Culture - Preliminary Blood - Peripheral No growth in 4 days Anaerobic Blood Culture - Preliminary No growth in 4 days 10/24/17 23:23 Aerobic Blood Culture - Preliminary Blood - Peripheral No growth in 4 days Anaerobic Blood Culture - Preliminary No growth in 4 days - Impressions ITS Impressions Upper Extremity Ultrasound 10/25/17 00:00 CONCLUSION: 1. Diffuse cellulitis with a complex subcutaneous collection measuring 2.6 x 2.0 x 0.8 cm consistent with developing abscess. Discharge Plan - Discharge Disposition Patient Disposition: 01 Discharge Home - Discharge Condition Condition: Stable - Discharge Order Discharge Orders: Discharge Order (Routine); Ordered 10/28/17 Ordered By: Jacinto Umana - Discharge Details Anticipated Discharge Date: 10/28/17 - Physicians Team Primary Care Provider: Primary Care Mary Plummer Attending Provider: Jacinto Umana Other Providers: Eleazar Hernandez MD
[2017-10-28] MEDS ORDERED: Pharmacy Ordered Lab Info OTHER ONE (19:45)
== END 2017-10-28 14:59 | disposition home or self-care (01) ==
LOC: NEPFCDU 16:26 → NEPD 16:26 → NEDA 10-25 01:05 → INTOOBSV 10-25 01:53 → NEPFCDU 10-25 13:51
PROVIDERS: ADMIT Internal Medicine; ATTEND Internal Medicine